=== PATIENT | female | born 1980 | race Caucasian/White ===

== ENCOUNTER → 2017-04-03 | Outpatient (CLI) | payer OTHER ==
[~2017-04-03] MED LIST: EXCETAB81 PO; TYLE500T78 PO
[2017-04-03 14:53] LABS: MEAN CORPUSCULAR HEMOGLOBIN 32.7 pg (27.0-33.0); MEAN CORPUSCULAR HGB CONC 34.2 g/dl (32.0-36.5); MEAN CORPUSCULAR VOLUME 95.4 fl (80.0-96.0); RED CELL DISTRIBUTION WIDTH 11.8 % (11.5-14.5); WHITE BLOOD COUNT 5.5 K/mm3 (4.0-10.0)
[2017-04-03 15:25] LABS: ALBUMIN 4.2 GM/DL (3.2-5.2); ALBUMIN/GLOBULIN RATIO 1.45 (1.00-1.93); ALKALINE PHOSPHATASE 43 U/L (45-117); ALT/SGPT 24 U/L (12-78); ANION GAP 6 MEQ/L (8-16); AST/SGOT 19 U/L (15-37); BILIRUBIN,TOTAL 0.4 MG/DL (0.2-1.0); BLOOD UREA NITROGEN 7 MG/DL (7-18); CARBON DIOXIDE LEVEL 28 MEQ/L (21-32); CHLORIDE LEVEL 106 MEQ/L (98-107); GLOMERULAR FILTRATION RATE > 60.0 (>60); GLUCOSE, FASTING 95 MG/DL (70-105); POTASSIUM SERUM 3.7 MEQ/L (3.5-5.1); SODIUM LEVEL 140 MEQ/L (136-145); TOTAL PROTEIN 7.1 GM/DL (6.4-8.2)
[2017-04-03 15:40] LABS: BASOPHILS 2 % (0-4); EOSINOPHILS 3 % (0-5)
[2017-04-03 15:41] LABS: ANISOCYTOSIS 1+
== END ==
LOC: M LAB 14:06
PROVIDERS: ATTEND Surgery
DX: K80.20 Calculus of gallbladder without cholecystitis without obstruction (principal)

== ENCOUNTER 2017-04-24 05:59 | Day surgery (SDC) | payer OTHER ==
[~2017-04-24] VITALS: Ht 167.6 cm; Wt 62.1 kg
[2017-04-24] MEDS ORDERED: ceFAZolin SOD 1 GM in D5W MINI-BAG PLUS 50 ML IV ONE (06:15)
[2017-04-24] MEDS ORDERED: LR 1,000 ML IV SCH ×3 (06:15→09:00)
[2017-04-24 06:37] LABS: CONTROL LINE UCG INT CTR LINE PRESENT
[2017-04-24] MEDS ORDERED: ONDANSETRON 4MG/2ML VIAL (J2405) As Ordered ONE (07:08)
[2017-04-24] MEDS ORDERED: GLYCOPYRROLATE INJ 0.2 MG/ML 2 ML VIAL As Ordered ONE (07:08)
[2017-04-24] MEDS ORDERED: PROPOFOL 200 MG/20 ML VIAL As Ordered ONE (07:08)
[2017-04-24] MEDS ORDERED: ROCURONIUM BROMIDE 50 MG/5 ML VIAL/SYRINGE As Ordered ONE (07:08)
[2017-04-24] MEDS ORDERED: LIDOCAINE 2% INJ 100 MG/5 ML SDV (FOR ANES.) As Ordered ONE (07:08)
[2017-04-24] MEDS ORDERED: NEOSTIGMINE 1MG/ML 5 ML SYRINGE (J2710) As Ordered ONE (07:08)
[2017-04-24] MEDS ORDERED: BUPIVACAINE/EPIN 0.25% 30 ML VIAL As Ordered ONE (07:09)
[2017-04-24] MEDS ORDERED: fentaNYL 100 MCG/2 ML INJECTION (J3010) As Ordered ONE (07:09)
[2017-04-24] MEDS ORDERED: MIDAZOLAM INJ 2 MG/2 ML VIAL (J2250) As Ordered ONE (07:09)
[2017-04-24] MEDS ORDERED: HYDROmorphone HCL 2 MG/ML 1ML VIAL (J1170) As Ordered ONE (08:11)
[2017-04-24] MEDS ORDERED: NORCO, ANEXSIA 5/325MG TABLET (HYDROcodone/ACETAMINOPHEN) PO PRN (08:45)
[2017-04-24] MEDS ORDERED: MORPHINE 2 MG/ML 1ML SYRINGE IV PRN (08:45)
[2017-04-24] MEDS ORDERED: ONDANSETRON 4MG/2ML VIAL (J2405) IV PRN ×2 (08:45→09:00)
[2017-04-24] MEDS ORDERED: PERCOCET 5MG/325MG TAB PO PRN (09:00)
[2017-04-24] MEDS ORDERED: MEPERIDINE INJ 25 MG/ML VIAL (J2175) IV PRN (09:00)
[2017-04-24] MEDS ORDERED: fentaNYL 100 MCG/2 ML INJECTION (J3010) IV PRN (09:00)
[2017-04-24] MEDS ORDERED: KETOROLAC 30 MG/ML VIAL (J1885) IV SCH (09:00)
[2017-04-24] MEDS ORDERED: METOCLOPRAMIDE INJ 10MG/2ML VIAL (J2765) IV PRN (09:00)
[2017-04-24] MEDS ORDERED: NORCO, ANEXSIA 5/325MG TABLET (HYDROcodone/ACETAMINOPHEN) PO ONE (10:00)
[2017-04-24 11:35] VITALS: BP 95/57
--- NOTE | 2017-05-19 19:47 | RO ---
DATE OF PROCEDURE: 04/24/2017 PREOPERATIVE DIAGNOSIS: Symptomatic gallstones. POSTOPERATIVE DIAGNOSIS: Symptomatic gallstones. PROCEDURE: Laparoscopic cholecystectomy. SURGEON: Hesham Breen ANESTHESIA: General endotracheal anesthesia. ESTIMATED BLOOD LOSS: Minimal. FLUIDS: Crystalloid. BRIEF PROCEDURE SUMMARY: The patient was brought to the operating room and was given general anesthesia. After adequate anesthesia and preoperative antibiotics were given the patient was prepped and draped in sterile fashion. Next a supraumbilical incision was made with skin knife. Blunt dissection was carried down this fascia. Fascia was grasped with Lukas clamps, elevated a Veress needle placed into the abdominal cavity. The abdomen was inflated to 15 mm pressure and then a dilating 10 mm trocar was placed in the periumbilical area. Next a epigastric and two lateral trocars were placed under direct visualization. The gallbladder was seen, grasped and retracted superiorly. There were some adhesions to the gallbladder to the omentum that were taken down with hook cautery and eventually after taking these down with hook cautery. The neck of the gallbladder was cleared of peritoneum using hook cautery as well laterally, and anteriorly and then across the medial aspect as well. The cystic artery was well visualized. It was completely surrounded using the hook dissector and then a good window behind the neck of the gallbladder was created the dissection of the gallbladder up onto the cystic plate was performed and the critical view of safety was appreciated. Once this was appreciated. The cystic artery was clipped proximally and distally and transected and then the neck of the gallbladder was able to be further mobilized at this point and the cystic duct was even better visualized at this time and clipped proximally, distally and transected. The gallbladder was taken from the gallbladder bed using electrocautery placed in an EndoCatch bag brought out through the umbilicus. The right upper quadrant and was copiously irrigated until clear. All trocars removed under direct visualization. 0 Vicryl was used to close the fascia at the umbilicus and 4-0 Vicryl was used to close all incisions. Steri-Strips and dry sterile dressing was applied. The patient was awakened, extubated, brought to recovery room awake, alert and hemodynamically stable. Sponge and needle counts correct times two.
== END 2017-04-24 11:57 | disposition home or self-care (01) ==
LOC: M SDC 05:59 → EDUNIT# 07:30 → M SDC 11:57
PROVIDERS: ATTEND Surgery
DX: K80.10 Calculus of gallbladder with chronic cholecystitis without obstruction (principal); F41.9 Anxiety disorder, unspecified; G43.909 Migraine, unspecified, not intractable, without status migrainosus; Z87.81 Personal history of (healed) traumatic fracture; Z87.820 Personal history of traumatic brain injury; Z72.0 Tobacco use
CPT/HCPCS: 47562; 84703; 88304; J0690; J1170; J1885; J2250; J2405; J2710; J3010